=== PATIENT | female | born 1960 | race Caucasian/White ===

== ENCOUNTER 2016-07-13 10:36 | Emergency (ER) | payer MEDICAID ==
[~2016-07-13] VITALS: Ht 170.1 cm; Wt 68.0 kg
--- NOTE | ~2016-07-13 | EKG ---
[place], [place] ELECTROCARDIOGRAM REPORT NAME: STEPAN BANG UNIT #: [id number] ROOM: DOCTOR: KHUSHI JOSEPH MD BIRTHDATE: [birth year] DOS: 07/13/2016 TIME: 11:29. Sinus tachycardia with rate of 110, left ventricular hypertrophy, cannot rule out previous inferior wall myocardial infarction, abnormal EKG. KHUSHI JOSEPH MD CM:EKGRPT:ELECTROCARDIOGRAM REPORT 14 37 KHUSHI JOSEPH MD
[~2016-07-13 10:36] MED LIST: 'CLONIDINE0.1 MG PO; CLONAZEPAM0.25 MG PO; CYMBALTA60 MG PO; DITROPAN XL10 MG PO; DULCOLAX10 M1 RC; FLONASE ALLERG9.9 ML NAS; GLUCOPHAGE500 MG PO; LEVEMIR10 ML SC; LOPRESSOR25 MG PO; MIRALAX17 GM PO; MOM30 M1 PO; PREMARIN V0.625 MG/G V; REMERON15 M2 PO; TEGRETOL200 MG PO; TYLENOL EXTRA500 M2 PO
[2016-07-13 11:03] LABS: BASO % 0.4 % (0.0-1.0); EOS # 0.2 10*3/uL (0.0-0.4); EOS % 1.9 % (1.0-4.0); HEMATOCRIT 35.5 % (37.0-47.0); HEMOGLOBIN 11.1 g/dl (12.0-16.0); IG # 0.1 10*3/uL (0.0-0.1); LYMPH # 1.5 10*3/uL (1.3-4.4); LYMPH % 17.1 % (27.0-41.0); MEAN CELL VOLUME 96.5 fl (81.0-99.0); MEAN CORPUSCULAR HGB 30.2 pg (27.0-31.0); MEAN CORPUSCULAR HGB CONC 31.3 g/dl (33.0-37.0); MEAN PLATELET VOLUME 11.4 fl (9.6-12.3); MONO # 0.6 10*3/uL (0.1-1.0); MONO % 7.2 % (3.0-9.0); NEUT # 6.2 10*3/uL (2.3-7.9); NEUT % 72.7 % (47.0-73.0); PLATELET COUNT AUTOMATED 260 10*3/uL (130-400); RED BLOOD COUNT 3.68 10*6/uL (4.10-5.10); RED CELL DISTRI WIDTH 12.9 % (0-14.5); WHITE BLOOD COUNT 8.5 10*3/uL (4.8-10.8)
[2016-07-13] MEDS ORDERED: JANUVIA25 MG PO (11:05)
[2016-07-13] MEDS ORDERED: METFORMIN500 MG PO (11:06)
[2016-07-13 11:12] LABS: INTERNATIONAL NORM RATIO 0.9 (2.0-3.5)
[2016-07-13 11:20] LABS: ALBUMIN 2.4 gm/dl (3.1-4.5); ALKALINE PHOSPHATASE 163 U/L (45-117); BILIRUBIN, TOTAL 0.2 mg/dl (0.2-1.0); BUN 13 mg/dl (7-24); CARBON DIOXIDE 27 mmol/L (21-32); CHLORIDE 107 mmol/L (98-107); CKMB 2.5 ng/ml (0.5-3.6); CPK 175 U/L (26-192); EST GLOM FILT AFRICAN AMERICAN > 60 ml/min; GLUCOSE 267 mg/dL (65-99); MAGNESIUM 2.1 mg/dL (1.5-2.1); POTASSIUM 4.1 mmol/L (3.5-5.1); SGOT/AST 31 IU/L (3-35); SGPT/ALT 33 U/L (12-78); SODIUM 142 mmol/L (136-145); TOTAL PROTEIN 6.9 gm/dL (6.4-8.2)
[2016-07-13 11:24] LABS: TROPONIN I < 0.015 ng/ml (<0.045)
[2016-07-13 12:36] LABS: BILIRUBIN NEGATIVE (NEGATIVE); BLOOD 3+ (NEGATIVE); CLARITY SL CLOUDY (CLEAR); COLOR YELLOW (YELLOW); GLUCOSE 3+ (NEGATIVE); KETONE NEGATIVE (NEGATIVE); LEUKO ESTERASE NEGATIVE (NEGATIVE); NITRITE NEGATIVE (NEGATIVE); PROTEIN 1+ (NEGATIVE); SPECIFIC GRAVITY >= 1.030 (1.005-1.030); UROBILINOGEN 0.2 E.U./dl (0.2-1.0)
[2016-07-13 12:54] LABS: MUCOUS 1+; RBC 21-30 rbc/hpf (0-2); URINE REFLEX COMMENT YES (NO)
[2016-07-13 13:00] LABS: LA>2 REFLEX 2 HR DRAW NOW
[2016-07-13 13:33] LABS: LA>2 RFLX FOLLOW UP AT 2 HRS 3.9 mmol/L (0.4-2.0)
[2016-07-13 15:02] VITALS: BP 114/63
[2016-07-13 15:23] LABS: LA>2 REFLEX 4 HR DRAW NOW
== END 2016-07-13 16:00 | disposition short-term general hospital (02) ==
LOC: ED 10:36
PROVIDERS: Emergency Medicine
DX: G93.41 Metabolic encephalopathy (principal); K85.90 Acute pancreatitis without necrosis or infection, unspecified; I10 Essential (primary) hypertension; G40.909 Epilepsy, unspecified, not intractable, without status epilepticus; Z79.899 Other long term (current) drug therapy; Z86.73 Personal history of transient ischemic attack (TIA), and cerebral infarction without residual deficits

== ENCOUNTER 2016-10-02 07:44 | Emergency (ER) | payer MEDICAID ==
[~2016-10-02] VITALS: Wt 56.2 kg
[~2016-10-02 07:44] MED LIST changes: +JANUVIA25 MG PO; +METFORMIN500 MG PO
[2016-10-02] MEDS ORDERED: ATORVASTATIN CA10 M1 PO ×2 (08:03→08:05)
[2016-10-02] MEDS ORDERED: CARBATROL100 MG PO (08:06)
[2016-10-02] MEDS ORDERED: CLONAZEPAM0.25 MG PO (08:07)
[2016-10-02] MEDS ORDERED: CYMBALTA30 MG PO (08:09)
[2016-10-02] MEDS ORDERED: PREMARIN V0.625 MG/G V (08:10)
[2016-10-02] MEDS ORDERED: FLUTICASON0.05 MG/AC NAS (08:10)
[2016-10-02] MEDS ORDERED: JANUVIA50 MG PO (08:11)
[2016-10-02] MEDS ORDERED: LEVEMIR10 ML SC (08:11)
[2016-10-02] MEDS ORDERED: LOSARTAN POTASS50 M1 PO (08:11)
[2016-10-02] MEDS ORDERED: Lopressor25 MG PO (08:12)
[2016-10-02] MEDS ORDERED: METFORMIN500 MG PO (08:12)
[2016-10-02] MEDS ORDERED: MIRALAX POWDER255 G1 PO (08:13)
[2016-10-02] MEDS ORDERED: MILK OF MA400 MG/51 PO (08:13)
[2016-10-02] MEDS ORDERED: REMERON15 M2 PO (08:14)
[2016-10-02] MEDS ORDERED: NOVOLOG10 ML SC (08:17)
[2016-10-02] MEDS ORDERED: OXYBUTYNIN CHLO10 MG PO (08:17)
[2016-10-02] MEDS ORDERED: TYLENOL325 M1 PO (08:18)
[2016-10-02] MEDS ORDERED: VITAMIN D400 I1 PO (08:18)
[2016-10-02 08:21] LABS: BASO % 0.4 % (0.0-1.0); EOS # 0.1 10*3/uL (0.0-0.4); EOS % 1.6 % (1.0-4.0); HEMATOCRIT 38.8 % (37.0-47.0); HEMOGLOBIN 12.7 g/dl (12.0-16.0); LYMPH # 2.2 10*3/uL (1.3-4.4); LYMPH % 44.1 % (27.0-41.0); MEAN CELL VOLUME 89.4 fl (81.0-99.0); MEAN CORPUSCULAR HGB 29.3 pg (27.0-31.0); MEAN CORPUSCULAR HGB CONC 32.7 g/dl (33.0-37.0); MEAN PLATELET VOLUME 10.3 fl (9.6-12.3); MONO # 0.4 10*3/uL (0.1-1.0); MONO % 8.4 % (3.0-9.0); NEUT # 2.3 10*3/uL (2.3-7.9); NEUT % 45.1 % (47.0-73.0); PLATELET COUNT AUTOMATED 186 10*3/uL (130-400); RED BLOOD COUNT 4.34 10*6/uL (4.10-5.10); RED CELL DISTRI WIDTH 12.7 % (0-14.5)
[2016-10-02 08:32] LABS: PROTHROMBIN TIME 10.6 SECONDS (9.0-12.4)
[2016-10-02 08:44] LABS: ALBUMIN 3.3 gm/dl (3.1-4.5); ALKALINE PHOSPHATASE 153 U/L (45-117); BILIRUBIN, TOTAL 0.2 mg/dl (0.2-1.0); BUN 12 mg/dl (7-24); C-REACTIVE PROTEIN 1.45 MG/DL (0-0.3); CARBON DIOXIDE 21 mmol/L (21-32); CHLORIDE 111 mmol/L (98-107); CKMB 1.4 ng/ml (0.5-3.6); CPK 66 U/L (26-192); EST GLOM FILT AFRICAN AMERICAN > 60 ml/min; GLUCOSE 111 mg/dL (65-99); MAGNESIUM 2.1 mg/dL (1.5-2.1); SGOT/AST 54 IU/L (3-35); SGPT/ALT 56 U/L (12-78); SODIUM 145 mmol/L (136-145); TOTAL PROTEIN 7.4 gm/dL (6.4-8.2)
[2016-10-02 08:47] LABS: TROPONIN I < 0.015 ng/ml (<0.045)
[2016-10-02 08:50] LABS: BILIRUBIN NEGATIVE (NEGATIVE); BLOOD NEGATIVE (NEGATIVE); CLARITY SL CLOUDY (CLEAR); COLOR YELLOW (YELLOW); GLUCOSE NEGATIVE (NEGATIVE); KETONE NEGATIVE (NEGATIVE); LEUKO ESTERASE 1+ (NEGATIVE); NITRITE NEGATIVE (NEGATIVE); PH 5.5 (5.0-9.0); PROTEIN NEGATIVE (NEGATIVE); UROBILINOGEN 0.2 E.U./dl (0.2-1.0)
[2016-10-02 09:04] LABS: BACTERIA 4+; URINE REFLEX COMMENT YES (NO); WBC 21-30 wbc/hpf (0-5)
[2016-10-02] MEDS ORDERED: CIPRO500 MG PO (09:19)
[2016-10-02 09:51] VITALS: BP 125/84
== END 2016-10-02 12:13 ==
LOC: ED 07:44
PROVIDERS: Emergency Medicine
DX: N39.0 Urinary tract infection, site not specified (principal); I10 Essential (primary) hypertension; G40.909 Epilepsy, unspecified, not intractable, without status epilepticus; Z86.73 Personal history of transient ischemic attack (TIA), and cerebral infarction without residual deficits; Z79.899 Other long term (current) drug therapy; Z86.69 Personal history of other diseases of the nervous system and sense organs

== ENCOUNTER 2017-01-22 13:23 | Emergency (ER) | payer MEDICAID ==
[~2017-01-22] VITALS: Wt 59.9 kg
[2017-01-22 13:23] VITALS: BP 124/63
[~2017-01-22 13:23] MED LIST changes: +ATORVASTATIN CA10 M1 PO; +CARBATROL100 MG PO; +CIPRO500 MG PO; +CYMBALTA30 MG PO; +FLUTICASON0.05 MG/AC NAS; +JANUVIA50 MG PO; +LOSARTAN POTASS50 M1 PO; +Lopressor25 MG PO; +MILK OF MA400 MG/51 PO; +MIRALAX POWDER255 G1 PO; +NOVOLOG10 ML SC; +OXYBUTYNIN CHLO10 MG PO; +TYLENOL325 M1 PO; +VITAMIN D400 I1 PO
[2017-01-22 13:59] LABS: BASO % 0.3 % (0.0-1.0); EOS # 0.1 10*3/uL (0.0-0.4); HEMATOCRIT 40.6 % (37.0-47.0); HEMOGLOBIN 12.8 g/dl (12.0-16.0); LYMPH # 1.6 10*3/uL (1.3-4.4); LYMPH % 22.7 % (27.0-41.0); MEAN CELL VOLUME 91.9 fl (81.0-99.0); MEAN CORPUSCULAR HGB CONC 31.5 g/dl (33.0-37.0); MEAN PLATELET VOLUME 10.3 fl (9.6-12.3); MONO # 0.4 10*3/uL (0.1-1.0); MONO % 5.5 % (3.0-9.0); NEUT # 4.8 10*3/uL (2.3-7.9); NEUT % 70.1 % (47.0-73.0); PLATELET COUNT AUTOMATED 182 10*3/uL (130-400); RED BLOOD COUNT 4.42 10*6/uL (4.10-5.10); RED CELL DISTRI WIDTH 12.6 % (0-14.5); WHITE BLOOD COUNT 6.9 10*3/uL (4.8-10.8)
[2017-01-22 14:12] LABS: ALBUMIN 3.4 gm/dl (3.1-4.5); ALKALINE PHOSPHATASE 169 U/L (45-117); BUN 15 mg/dl (7-24); CHLORIDE 102 mmol/L (98-107); CREATININE 0.71 mg/dL (0.55-1.02); POTASSIUM 4.2 mmol/L (3.5-5.1); SGOT/AST 49 IU/L (3-35); SGPT/ALT 64 U/L (12-78); SODIUM 138 mmol/L (136-145); TOTAL PROTEIN 7.8 gm/dL (6.4-8.2)
[2017-01-22 14:16] LABS: BILIRUBIN NEGATIVE (NEGATIVE); BLOOD NEGATIVE (NEGATIVE); CLARITY CLOUDY (CLEAR); COLOR YELLOW (YELLOW); GLUCOSE 2+ (NEGATIVE); KETONE TRACE (NEGATIVE); LEUKO ESTERASE TRACE (NEGATIVE); NITRITE NEGATIVE (NEGATIVE); PH 5.5 (5.0-9.0); SPECIFIC GRAVITY 1.015 (1.005-1.030); UROBILINOGEN 0.2 E.U./dl (0.2-1.0)
[2017-01-22 14:22] LABS: RBC 0-2 rbc/hpf (0-2)
[2017-01-22 14:23] LABS: BACTERIA 3+
== END 2017-01-22 15:24 ==
LOC: ED 13:23
PROVIDERS: Emergency Medicine
DX: R47.89 Other speech disturbances (principal); Z98.890 Other specified postprocedural states; Z79.899 Other long term (current) drug therapy

== ENCOUNTER → 2019-02-27 | Day surgery (SDC) | payer MEDICAID ==
--- NOTE | ~2019-02-27 | O ---
[place], [place] OPERATIVE NOTE NAME: STEPAN BANG UNIT #: [id number] ROOM: DOCTOR: NATHEN GRACE MD BIRTHDATE: [birth year] DOS: 02/27/2019 INDICATIONS: A 58-year-old patient with chief complaint of colonic screening, undergoing investigation. ALLERGIES: No known medication. FAMILY HISTORY: Noncontributory. PAST SURGICAL HISTORY: Cholecystectomy. PAST MEDICAL HISTORY: CVA 20 years ago. SOCIAL HISTORY: Nonsmoker, nonalcohol consumer. PROCEDURE: Today's procedure part of investigation is colonoscopy plus polypectomy x 2 plus tattoo marking of the cecum. PREMEDICATION: Propofol. SCOPE: Olympus forward-viewing colonoscope 10L video. REPORT: After putting the patient in the left lateral position and application of lubricant to the scope, the scope was introduced. Thereafter, under direct visualization, advanced through the length of colon without difficulty. Base of the cecum explored, appendiceal orifice identified, ileocecal valve was entered. There is a large infiltrated polypoid lesion at the base of the cecum. Partial polypectomy snare was performed for sampling to rule out carcinoma. Tattoo marking of the cecum was done. Another polypoid lesion, hepatic flexure, small with a snare was polypectomized. Samples removed. The patient extubated, tolerated the procedure well. IMPRESSION: Cecal infiltrating polyp large, status post segmental polypectomy for pathology as well as tattoo marking and also status post polypectomy at the splenic flexure, small polyp. PLAN AND DISCUSSION: High fiber diet. ACTIVITY: Ad malik. FOLLOWUP: As outpatient. Should it be positive samples of the cecum, then she requires cecectomy. [place], [place] OPERATIVE NOTE NAME: STEPAN BANG UNIT #: [id number] ROOM: DOCTOR: NATHEN GRACE MD BIRTHDATE: [birth year] NATHEN GRACE MD CM:OPRECORD:OPERATIVE NOTE 1220 [id number] NATHEN GRACE MD 02/27/19 1359 interface
[2019-02-27 10:00] VITALS: BP 171/77
[2019-02-27 12:14] VITALS: BP 86/47
[2019-02-27 12:29] VITALS: BP 105/60
[2019-02-27 12:44] VITALS: BP 147/79
[2019-02-27 14:10] VITALS: BP 167/75
== END | disposition home or self-care (01) ==
LOC: SDC 02-24 09:30
DX: D12.3 Benign neoplasm of transverse colon (principal); D12.0 Benign neoplasm of cecum; K59.00 Constipation, unspecified; I25.10 Atherosclerotic heart disease of native coronary artery without angina pectoris; I10 Essential (primary) hypertension; E11.9 Type 2 diabetes mellitus without complications; Z90.49 Acquired absence of other specified parts of digestive tract; Z86.73 Personal history of transient ischemic attack (TIA), and cerebral infarction without residual deficits

== ENCOUNTER 2019-04-22 07:40 | Inpatient (IN) | payer MEDICAID ==
[~2019-04-22] VITALS: Ht 152.4 cm; Wt 56.9 kg
[2019-04-22 07:50] VITALS: BP 167/92
[2019-04-22 08:00] VITALS: BP 167/92
--- NOTE | 2019-04-22 08:28 | NUR ---
DR. BHARDWAJ IN TO SEE PATIENT AND DISCUSS PLAN OF CARE. ORDERS RECEIVED. PATIENT MADE NPO AT THIS TIME.
--- NOTE | 2019-04-22 08:48 | NUR ---
Time: 749 A 59 year old FEMALE admitted to 5E under services of FRED SLAUGHTER DO. Pt. arrived via wheel chair from [place]. Chief complaint: CECAL POLYP. PATIENT ORIENTED TO THE FLOOR 5E CALL LIGHT SYSTEM EXPLAINED AND DEMONSTRATED. ASSESSMENT PERFORMED, IV INITIATED. DR. POE NOTIFIED OF ADMISSION'S ARRIVAL MARIA GUADALUPE LUCAS
--- NOTE | 2019-04-22 09:37 | NUR ---
SPOKE WITH TOBY BENITO ABOUT PATIENT AND PLAN OF CARE. ORDERS RECEIVED TO BLADDER SCAN PATIENT. WILL PLACE VALENTIN IF RETAINING.
[2019-04-22 11:34] LABS: BASO % 0.3 % (0.0-1.0); EOS # 0.1 10*3/uL (0.0-0.4); EOS % 1.5 % (1.0-4.0); HEMATOCRIT 40.9 % (37.0-47.0); HEMOGLOBIN 13.3 g/dl (12.0-16.0); LYMPH % 33.8 % (27.0-41.0); MEAN CELL VOLUME 91.5 fl (81.0-99.0); MEAN CORPUSCULAR HGB 29.8 pg (27.0-31.0); MEAN CORPUSCULAR HGB CONC 32.5 g/dl (33.0-37.0); MEAN PLATELET VOLUME 10.2 fl (9.6-12.3); MONO # 0.4 10*3/uL (0.1-1.0); MONO % 7.4 % (3.0-9.0); NEUT # 3.3 10*3/uL (2.3-7.9); NEUT % 56.5 % (47.0-73.0); PLATELET COUNT AUTOMATED 214 10*3/uL (130-400); RED BLOOD COUNT 4.47 10*6/uL (4.10-5.10); RED CELL DISTRI WIDTH 13.9 % (0-14.5); WHITE BLOOD COUNT 5.8 10*3/uL (4.8-10.8)
[2019-04-22 11:45] LABS: ACT PARTIAL THROMBO TIME 25.4 SECONDS (20.0-32.1); INTERNATIONAL NORM RATIO 0.9 (2.0-3.5)
[2019-04-22 11:49] LABS: ALBUMIN 3.7 gm/dl (3.1-4.5); ALKALINE PHOSPHATASE 126 U/L (45-117); BUN 15 mg/dl (7-24); CHLORIDE 107 mmol/L (98-107); CREATININE 0.64 mg/dL (0.55-1.02); SGOT/AST 31 IU/L (3-35); SGPT/ALT 52 U/L (12-78); SODIUM 139 mmol/L (136-145); TOTAL PROTEIN 7.9 gm/dL (6.4-8.2)
[2019-04-22 12:00] VITALS: BP 166/76
--- NOTE | 2019-04-22 13:59 | NUR ---
UPDATED DR. BHARDWAJ WITH THE CT SCAN RESULTS. NO NEW ORDERS AT THIS TIME. PATIENT WILL BE MADE NPO AT MIDNIGHT.
[2019-04-22 14:44] LABS: BILIRUBIN NEGATIVE (NEGATIVE); BLOOD 1+ (NEGATIVE); CLARITY SL CLOUDY (CLEAR); COLOR STRAW (YELLOW); GLUCOSE NEGATIVE (NEGATIVE); KETONE NEGATIVE (NEGATIVE); LEUKO ESTERASE TRACE (NEGATIVE); NITRITE POSITIVE (NEGATIVE); SPECIFIC GRAVITY <= 1.005 (1.005-1.030); UROBILINOGEN 0.2 E.U./dl (0.2-1.0)
[2019-04-22 15:23] LABS: BACTERIA 3+
[2019-04-22 16:00] VITALS: BP 158/70
--- NOTE | 2019-04-22 16:17 | NUR ---
I SPOKE WITH DR BHARDWAJ AND MADE HIM AWARE OF PT'S +UA RESULTS PER TOBY BENITO REQUEST. STATED SHE IS OK FOR SURGERY TOMMORROW STILL.
[2019-04-22 20:00] VITALS: BP 173/77
[2019-04-23] VITALS (11 sets, daily range): BP systolic 139–190; BP diastolic 62–89
--- NOTE | 2019-04-23 00:44 | NUR ---
Patient resting quietly with no c/o discomfort. Respirations easy and regular. Vital signs stable. No overt distress. ADA FOSTER
--- NOTE | 2019-04-23 05:00 | NUR ---
SPOKE WITH DR BHARDWAJ. HE GAVE ORDERS TO GIVE THE PATIENT A FLEET ENEMA AND THEN TAP WATER ENEMAS UNTIL THE PATIENT HAD A BOWEL MOVEMENT BEFORE HER SCHEDULED SURGERY TODAY.
--- NOTE | 2019-04-23 05:45 | NUR ---
FLEET ENEMA ADMINISTERED. PATIENT TOLERATING WELL.
--- NOTE | 2019-04-23 06:15 | NUR ---
PATIENT HAD A BOWEL MOVEMENT. STOOL WAS FORMED. PATIENT STATED SHE WANTED TO TAKE A BREAK BEFORE RECIEVING A TAP WATER ENEMA IF NEEDED.
--- NOTE | 2019-04-23 08:19 | NUR ---
PHYSICAL THERAPY Screen received as well as PT orders will follow thank you Geri Mckeon PT
--- NOTE | 2019-04-23 08:20 | NUR ---
BETA-COLTEN METOPROLOL ADMINISTERED PER POLICY, PATIENT TO OR BY BED AT THIS TIME FOR PROCEDURE.
--- NOTE | 2019-04-23 08:42 | NUR ---
Nursing screen and Occupational Therapy referral received. Thank you. Valentina Amaro OTR/L
--- NOTE | 2019-04-23 10:44 | NUR ---
REPORT CALLED TO RECEIVING RN IN ICCU; PATIENT WILL BE TAKEN THERE WHEN SURGERY COMPLETED, PER OR STAFF.
--- NOTE | 2019-04-23 13:50 | NUR ---
RECEIVED INTO ICCU-6 VIA BED FROM OR. DROWSY, DOES OPEN EYES WHEN NAME IS CALLED. DAUGHTER HERE IN ROOM. HANDS CONTRACTURED. AFEBRILE. BP 155/71. PULSE OX 96% ON ROOM AIR. LUNGS CLEAR. MIDLINE ABDOMINAL INCISION DRESSING DRY AND INTACT.
--- NOTE | 2019-04-23 16:10 | NUR ---
PT RESTING IN BED AWAKE, ALERT, VERBAL AND ANSWERS QUESTIONS. RESP NONLABORED. PT C/O PAIN. MEDICATED WITH DILAUSIS PER PRN ORDER FOR PAIN. IV PATENT AND IVF'S INFUSING ORDERED WITHOUT DIFFICULTY. NO S/S OF HYPO/HYPERGLYCEMIA NOTED. VALENTIN PATENT FOR CLEAR STRAW URINE. MIDLINE INSICION DRESSING DRY AND INTACT.
--- NOTE | 2019-04-23 17:00 | NUR ---
DILAUDID EFFECTIVE FOR PAIN.
[2019-04-23 18:37] LABS: BASO % 0.1 % (0.0-1.0); EOS # 0.2 10*3/uL (0.0-0.4); HEMATOCRIT 33.7 % (37.0-47.0); HEMOGLOBIN 10.6 g/dl (12.0-16.0); LYMPH # 0.5 10*3/uL (1.3-4.4); LYMPH % 5.9 % (27.0-41.0); MEAN CELL VOLUME 92.1 fl (81.0-99.0); MEAN CORPUSCULAR HGB CONC 31.5 g/dl (33.0-37.0); MEAN PLATELET VOLUME 10.3 fl (9.6-12.3); MONO # 0.6 10*3/uL (0.1-1.0); MONO % 7.3 % (3.0-9.0); NEUT # 6.6 10*3/uL (2.3-7.9); NEUT % 84.4 % (47.0-73.0); PLATELET COUNT AUTOMATED 190 10*3/uL (130-400); RED BLOOD COUNT 3.66 10*6/uL (4.10-5.10); RED CELL DISTRI WIDTH 14.5 % (0-14.5); WHITE BLOOD COUNT 7.9 10*3/uL (4.8-10.8)
[2019-04-23 18:50] LABS: ALBUMIN 2.9 gm/dl (3.1-4.5); ALKALINE PHOSPHATASE 105 U/L (45-117); BUN 9 mg/dl (7-24); CHLORIDE 117 mmol/L (98-107); CREATININE 0.66 mg/dL (0.55-1.02); POTASSIUM 3.3 mmol/L (3.5-5.1); SGOT/AST 83 IU/L (3-35); SGPT/ALT 71 U/L (12-78); SODIUM 146 mmol/L (136-145); TOTAL PROTEIN 6.2 gm/dL (6.4-8.2)
--- NOTE | 2019-04-23 20:50 | NUR ---
MEDICATED WITH DILAUDID FOR S/S OF PAIN.
--- NOTE | 2019-04-23 22:00 | NUR ---
DILAUDID EFFECTIVE FOR PAIN.
[2019-04-24] VITALS: BP 178/88
--- NOTE | 2019-04-24 01:00 | NUR ---
MEDICATED WITH DILAUDID PER PRN ORDER FOR C/O PAIN.
--- NOTE | 2019-04-24 02:00 | NUR ---
DILAUDID EFFECTIVE FOR PAIN.
[2019-04-24 04:00] VITALS: BP 157/98
--- NOTE | 2019-04-24 06:15 | NUR ---
MEDICATED WITH DILAUDID FOR S/S OF PAIN.
[2019-04-24 06:29] LABS: BASO % 0.1 % (0.0-1.0); EOS # 0.2 10*3/uL (0.0-0.4); EOS % 2.6 % (1.0-4.0); HEMATOCRIT 31.6 % (37.0-47.0); HEMOGLOBIN 9.9 g/dl (12.0-16.0); LYMPH # 1.1 10*3/uL (1.3-4.4); LYMPH % 11.4 % (27.0-41.0); MEAN CELL VOLUME 93.8 fl (81.0-99.0); MEAN CORPUSCULAR HGB 29.4 pg (27.0-31.0); MEAN CORPUSCULAR HGB CONC 31.3 g/dl (33.0-37.0); MEAN PLATELET VOLUME 10.6 fl (9.6-12.3); MONO # 0.7 10*3/uL (0.1-1.0); MONO % 7.9 % (3.0-9.0); NEUT # 7.3 10*3/uL (2.3-7.9); NEUT % 77.7 % (47.0-73.0); PLATELET COUNT AUTOMATED 179 10*3/uL (130-400); RED BLOOD COUNT 3.37 10*6/uL (4.10-5.10); RED CELL DISTRI WIDTH 14.7 % (0-14.5); WHITE BLOOD COUNT 9.4 10*3/uL (4.8-10.8)
[2019-04-24 06:41] LABS: ALBUMIN 2.8 gm/dl (3.1-4.5); ALKALINE PHOSPHATASE 99 U/L (45-117); BUN 10 mg/dl (7-24); CHLORIDE 115 mmol/L (98-107); CREATININE 0.71 mg/dL (0.55-1.02); POTASSIUM 3.3 mmol/L (3.5-5.1); SGOT/AST 60 IU/L (3-35); SGPT/ALT 69 U/L (12-78); SODIUM 144 mmol/L (136-145); TOTAL PROTEIN 6.4 gm/dL (6.4-8.2)
[2019-04-24 08:00] VITALS: BP 153/82
--- NOTE | 2019-04-24 08:29 | NUR ---
Patient transferred to ICCU 04/23/19 after right colectomy. Patient resides at [facility] and uses a custom w/c. Per nursing notes she is able to perform a stand pivot transfer to w/c. She is assisted in her ADls at LTC If OT is indicated she will need a new referral. Valentina Amaro OTR/L
--- NOTE | 2019-04-24 08:35 | NUR ---
PHYSICAL THERAPY Pt transfered to ICU will need new orders for PT when medically stable Geri Mckeon PT
--- NOTE | 2019-04-24 09:01 | NUR ---
PATIENT YELLING OUT. C/O BACK PAIN. MEDICATED WITH DILAUDID PER ONE TIME EXTRA ORDER.
--- NOTE | 2019-04-24 09:23 | NUR ---
PATIENT CONTINUES TO YELL OUT. MEDICATED WITH ATIVAN 1MG IV PER PRN ORDER FOR AGITATION. WILL CONTINUE TO MONITOR.
--- NOTE | 2019-04-24 11:00 | NUR ---
ONE TIME LABETOLOL ORDER HELD DUE TO BLOOD [id number]. PATIENT IS RESTING WITH EYES CLOSED. IS NO LONGER YELLING OUT. INFORMED OF HOLDING ORDER.
[2019-04-24 12:00] VITALS: BP 146/69
[2019-04-24 16:00] VITALS: BP 139/70
[2019-04-24 20:00] VITALS: BP 125/74
--- NOTE | 2019-04-24 22:00 | NUR ---
PT MOANING OUT AND WHEN ASKED IF IN PAIN PT STATES YES. MEDICATED WITH DILAUDID PER PRN ORDER FOR PAIN.
--- NOTE | 2019-04-24 23:00 | NUR ---
DILAUDID EFFECTIVE FOR PAIN.
[2019-04-25] VITALS: BP 120/54; BP 140/63
--- NOTE | 2019-04-25 00:15 | NUR ---
PT HR 130'S AND BP 164/71. DR PAINTING HERE AND ORDER FOR 0200 LOPRESSOR TO BE GIVEN NOW.
--- NOTE | 2019-04-25 01:05 | NUR ---
MEDICATED WITH ATIVAN PER PRN ORDER.
--- NOTE | 2019-04-25 02:55 | NUR ---
MEDICATED WITH DILAUDID PER PRN ORDER FOR S/S OF PAIN. PT CRYING OUT.
[2019-04-25 03:58] VITALS: BP 120/65
--- NOTE | 2019-04-25 04:00 | NUR ---
DILAUDID EFFECTIVE FOR PAIN.
--- NOTE | 2019-04-25 06:40 | NUR ---
MEDICATED WITH ATIVAN PER PRN ORDER FOR AGITATION.
--- NOTE | 2019-04-25 06:44 | NUR ---
PHYSICAL THERAPY PT EVAL COMPLETED : FULL EVAL TO FOLLOW. RECOMMEND PT WHILE HERE INITIALLY TO ADDRESS TRANSFERS AND ASSESS FOR PT NEED. PT EVAL IS MODERATE COMPLEXITY; [id number]. D/C REC: RETURN TO LTC AT [facility]. WILL RETURN TOMORROW AND COMPLETE TRANSFER OUT OF BED TO CHAIR WITH NURSING STAFF. THANK YOU FOR REFERRAL FRANDY RUANO PT
--- NOTE | 2019-04-25 07:47 | NUR ---
PATIENT YELLING OUT CONTINUOUSLY. JUST SAYS THE WORD PAIN. MEDICATED WITH DILAUDID PER PRN ORDER. WILL CONTINUE TO MONITOR.
[2019-04-25 08:00] VITALS: BP 143/62
--- NOTE | 2019-04-25 08:30 | NUR ---
PATIENT RESTING QUIETLY. NO FURTHER YELLING OUT. DILAUDID EFFECTIVE.
[2019-04-25 08:32] LABS: BASO % 0.2 % (0.0-1.0); EOS # 0.1 10*3/uL (0.0-0.4); EOS % 0.5 % (1.0-4.0); HEMATOCRIT 29.2 % (37.0-47.0); HEMOGLOBIN 8.9 g/dl (12.0-16.0); LYMPH # 1.6 10*3/uL (1.3-4.4); LYMPH % 16.8 % (27.0-41.0); MEAN CELL VOLUME 95.1 fl (81.0-99.0); MEAN CORPUSCULAR HGB CONC 30.5 g/dl (33.0-37.0); MEAN PLATELET VOLUME 10.5 fl (9.6-12.3); MONO # 0.5 10*3/uL (0.1-1.0); MONO % 5.8 % (3.0-9.0); PLATELET COUNT AUTOMATED 160 10*3/uL (130-400); RED BLOOD COUNT 3.07 10*6/uL (4.10-5.10); RED CELL DISTRI WIDTH 14.9 % (0-14.5); WHITE BLOOD COUNT 9.2 10*3/uL (4.8-10.8)
[2019-04-25 08:42] LABS: BUN 8 mg/dl (7-24); CHLORIDE 118 mmol/L (98-107); CREATININE 0.55 mg/dL (0.55-1.02); POTASSIUM 3.5 mmol/L (3.5-5.1); SODIUM 146 mmol/L (136-145)
[2019-04-25 12:00] VITALS: BP 141/75
--- NOTE | 2019-04-25 12:00 | NUR ---
FAMILY AT BEDSIDE. STATING THAT WHEN PATIENT IS SHAKING HER HEAD AND FEET THAT SHE IS HAVING PAIN. REQUESTING PAIN MEDICATION GIVEN. MEDICATED WITH DILAUDID PER PRN ORDER. WILL CONTINUE TO MONITOR.
--- NOTE | 2019-04-25 12:30 | NUR ---
PATIENT RESTING QUIETLY AT THIS TIME. NO FURTHER SHAKING OF FEET/HANDS. DILAUDID EFFECTIVE.
--- NOTE | 2019-04-25 13:47 | NUR ---
ATIVAN PER FAMILYS REQUEST
[2019-04-25 16:00] VITALS: BP 155/80
[2019-04-25 20:00] VITALS: BP 172/79
[2019-04-26] VITALS (7 sets, daily range): BP systolic 101–184; BP diastolic 48–78
[2019-04-26 05:27] LABS: ALBUMIN 2.3 gm/dl (3.1-4.5); ALKALINE PHOSPHATASE 141 U/L (45-117); BUN 9 mg/dl (7-24); CHLORIDE 118 mmol/L (98-107); CREATININE 0.46 mg/dL (0.55-1.02); POTASSIUM 3.4 mmol/L (3.5-5.1); SGOT/AST 59 IU/L (3-35); SGPT/ALT 55 U/L (12-78); SODIUM 145 mmol/L (136-145); TOTAL PROTEIN 6.1 gm/dL (6.4-8.2)
[2019-04-26 06:13] LABS: BASO % 0.1 % (0.0-1.0); EOS # 0.1 10*3/uL (0.0-0.4); EOS % 0.9 % (1.0-4.0); HEMATOCRIT 29.5 % (37.0-47.0); HEMOGLOBIN 8.9 g/dl (12.0-16.0); LYMPH # 1.8 10*3/uL (1.3-4.4); LYMPH % 20.3 % (27.0-41.0); MEAN CORPUSCULAR HGB 29.3 pg (27.0-31.0); MEAN CORPUSCULAR HGB CONC 30.2 g/dl (33.0-37.0); MEAN PLATELET VOLUME 10.7 fl (9.6-12.3); MONO # 0.5 10*3/uL (0.1-1.0); MONO % 5.2 % (3.0-9.0); NEUT # 6.4 10*3/uL (2.3-7.9); NEUT % 73.2 % (47.0-73.0); PLATELET COUNT AUTOMATED 185 10*3/uL (130-400); RED BLOOD COUNT 3.04 10*6/uL (4.10-5.10); RED CELL DISTRI WIDTH 14.6 % (0-14.5); WHITE BLOOD COUNT 8.7 10*3/uL (4.8-10.8)
--- NOTE | 2019-04-26 09:00 | NUR ---
PT HAD LARGE AMOUNT OF LIQUID STOOL.
--- NOTE | 2019-04-26 09:13 | NUR ---
PT MEDICATED WITH DILAUDID 1MG AND ATIVAN 1MG DUE TO BECOMING AGITATED AND HOLLERING OUT "IM IN PAIN".
--- NOTE | 2019-04-26 10:41 | NUR ---
DR BHARDWAJ IN TO SEE PT. HE SPOKE WITH DAUGHTER WHO IS AT BEDSIDE ALSO.
--- NOTE | 2019-04-26 10:45 | NUR ---
PT DILAUDID AND ATIVAN ARE EFFECTIVE. PT HAS BEEN RESTING QUIETLY SINCE BEING MEDICATED.
--- NOTE | 2019-04-26 11:30 | NUR ---
PHYSICAL THERAPY PATIENT SEEN TODAY WITH DAUGHTERS PRESENT TO COMPLETE STAND PIVOT TRANSFER FROM BED TO RECLINER PER SURGEONS REQUEST TO BE UP AND OUT OF BED. PATEINT REQUIRED MAX ASSIST TO TD + FOR SUPINE TO SIT AND THEN TD OF 2 FOR SPT FROM BED TO RECLINER. ONCE IN RECLINER PILLOWS WERE PLACED FOR OPTIMAL POSITIONING AND DISCUSSED WITH NURSING AND FAMILY THAT SHE WAS NOT SAFE TO BE UPRIGHT IN THE CHAIR WITHOUT THE LEGREST UP UNLESS SHE WAS CONSTANTLY ATTENDED DUE TO EXTENSOR TONE IN TRUNK CAUSING HER TO SLIDE DOWNWARD IN THE CHAIR. NURSING AND FAMILY UNDERSTOOD AND WILL FOLLOW THROUGH. FRANDY RUANO PT
--- NOTE | 2019-04-26 12:30 | NUR ---
PT ASSISTED OUT OF BED IN TO RECLINER CHAIR. PT WAS MAX ASSIST OF 2.
--- NOTE | 2019-04-26 13:46 | NUR ---
MAX ASSIST OF 2 NEEDED TO TRANSFER PT BACK INTO BED.
--- NOTE | 2019-04-26 14:10 | NUR ---
AFTER BEING ASSISTED BACK IN TO BED PT HOLLERING OUT IN PAIN. DILAUDID 1MG IV GIVEN WITH ATIVAN 1MG IV FOR ANXIETY.
[2019-04-27] VITALS: BP 144/73
[2019-04-27 04:00] VITALS: BP 151/68
--- NOTE | 2019-04-27 05:02 | NUR ---
PATIENT HAS STARTED HOLLARING OUT ABOUT EVERY 4-5 HOURS ANSD WHEN ASKED IF SHE HAS PAIN SHE SAYS YES THIS TIME PATIENT KEPT YELLING SO ATIVAN WAS GIVEN FOR ANXIETY. PATIENT NOW RESTING COMFORTABLY FOR THE NIGHT.
[2019-04-27 05:30] LABS: BUN 5 mg/dl (7-24); CHLORIDE 121 mmol/L (98-107); CREATININE 0.41 mg/dL (0.55-1.02); PHOSPHOROUS 1.2 mg/dL (2.5-4.9); POTASSIUM 3.2 mmol/L (3.5-5.1); SODIUM 147 mmol/L (136-145)
[2019-04-27 06:14] LABS: BASO % 0.2 % (0.0-1.0); EOS # 0.2 10*3/uL (0.0-0.4); EOS % 3.7 % (1.0-4.0); HEMOGLOBIN 8.1 g/dl (12.0-16.0); LYMPH # 1.2 10*3/uL (1.3-4.4); LYMPH % 19.6 % (27.0-41.0); MEAN CELL VOLUME 98.2 fl (81.0-99.0); MEAN CORPUSCULAR HGB 29.5 pg (27.0-31.0); MEAN PLATELET VOLUME 10.1 fl (9.6-12.3); MONO # 0.4 10*3/uL (0.1-1.0); NEUT % 68.3 % (47.0-73.0); PLATELET COUNT AUTOMATED 199 10*3/uL (130-400); RED BLOOD COUNT 2.75 10*6/uL (4.10-5.10); RED CELL DISTRI WIDTH 14.5 % (0-14.5); WHITE BLOOD COUNT 5.9 10*3/uL (4.8-10.8)
--- NOTE | 2019-04-27 07:55 | NUR ---
PHYSICAL THERAPY Patient seen this am 1:1 for therapy visit and was resting supine in bed upon therapist arrival. Patient identified by name / and presented with IV treatment, vital monitoring. Patient resting HR 102 bpm at rest and following supine to sit EOB transfer, MAX A x 2, demonstrating increased global Rigidity. Patient also very limited in trunk flexion making it more difficult to tolerate static EOB sit. Patient transfered sit to stand SECURITY STRATEGIST/MAX A, completing SPT to bedside chair, requiring repeated v/c's for upright posture and safe step sequence. Patient remained in bedside recliner chair with LE's elevated under ICCU staff Supervision. Patient also needed repositioned in chair due to Poor trunk control with pillow support for comfort. Will continue per POC as tolerated, total treatment time 14 minutes. Philip Perea, BLOWER OPERATOR
[2019-04-27 08:00] VITALS: BP 139/65
--- NOTE | 2019-04-27 08:39 | NUR ---
PATIENT YELLING OUT IN PAIN. MEDICATED WITH DILAUDID PER PRN ORDER. WILL CONTINUE TO MONITOR.
--- NOTE | 2019-04-27 10:37 | NUR ---
Patient up in recliner, lethargic and not appropriate for OT evaluation at this time. Valentina Amaro OTR/l
[2019-04-27 12:00] VITALS: BP 172/78
--- NOTE | 2019-04-27 12:46 | NUR ---
PATIENT YELLING OUT IN PAIN. MEDICATED WITH DILAUDID PER PRN ORDER. WILL CONTINUE TO MONITOR.
--- NOTE | 2019-04-27 13:45 | NUR ---
Occupational Therapy evaluation completed in ICCU with full eval to follow. Patient was unable/unwilling to open eyes or actively move BUE for evaluation and PROM BUE only assessed. Discussion w/ PT who has patient on programming, and recommend PT trial dima lift into custom w/c and then train staff if patient able to tolerate. No further OT indicated. Recommend PROM BUE with daily nursing care and return to LTC facility upon d/c. Thank you. Valentina Amaro OTr/l
--- NOTE | 2019-04-27 14:44 | NUR ---
PT YELLING OUT. HR 130s ON CM. SEEMS TO BE IN PAIN. DILAUDID GIVEN PER ORDERS. WILL MONITOR. CALL LIGHT WITHIN REACH. BED ALARM ON.
--- NOTE | 2019-04-27 15:15 | NUR ---
Resting comfortably following dilaudid. Pain med seems to be effective. call light within reach. Bed alarm on.
[2019-04-27 16:00] VITALS: BP 142/71
--- NOTE | 2019-04-27 16:31 | NUR ---
CALLED FOR HR 120-130s. SAID IT WAS OK. SHE HAS SCHEDULED LOPRESSOR IV. CONTINUE WITH CURRENT ORDERS.
--- NOTE | 2019-04-27 17:36 | NUR ---
HR 110S FOLLOWING IV LOPRESSOR. PT ASYMPTOMATIC. WILL MONITOR. RESTING IN BED. NO SXS OF DISTRESS NOTED. FAMILY AT BEDSIDE
--- NOTE | 2019-04-27 19:30 | NUR ---
IN TO SEE PT. ASSESSMENT COMPLETE. PT DOES NOT RESPOND TO ANY QUESTIONS. NO S/S OF DISTRESS NOTED AT THIS TIME. WILL CONTINUE TO MONITOR.
[2019-04-27 20:00] VITALS: BP 160/72
--- NOTE | 2019-04-27 20:15 | NUR ---
PTS HR 140 PER GIVE HER SCHEDULED IV METOPROLOL NOW AND CALL HIM BACK IN 10 MIN WITH HR.
--- NOTE | 2019-04-27 20:24 | NUR ---
DALE LOPRESSOR GIVEN PER WILL MONITOR
--- NOTE | 2019-04-27 20:41 | NUR ---
NOTIFIED PTS HR NOW DOWN TO 112. NO NEW ORDERS RECEIVED.
--- NOTE | 2019-04-27 20:59 | NUR ---
PT YELLING OUT IN PAIN. DILAUDID GIVEN ORDERED. WILL CHECK EFFECTIVENESS.
--- NOTE | 2019-04-27 21:30 | NUR ---
PT RESTING COMFORTABLY IN BED WITH EYES SHUT. PAIN MED WAS EFFECTIVE.
--- NOTE | 2019-04-27 23:04 | NUR ---
PT YELLING OUT IN PAIN. MEDICATED WITH PRN DILAUDID ORDERED. WILL CHECK EFFECTIVENESS.
--- NOTE | 2019-04-27 23:30 | NUR ---
PT RESTING IN BED COMFORTABLY WITH EYES CLOSE. NO SIGNS OF DISTRESS NOTED. PAIN MED EFFECTIVE. WILL CONTINUE TO MONITOR.
[2019-04-28] VITALS: BP 195/76
--- NOTE | 2019-04-28 | NUR ---
PTS HR BACK IN THE 120'S. NOTIFIED AND HE SAID TO GO AHEAD AND GIVE THE LOPRESSOR AGAIN ORDERED.
--- NOTE | 2019-04-28 00:14 | NUR ---
LOPRESSOR GIVEN ORDERED. WILL MONITOR HR.
[2019-04-28 00:45] VITALS: BP 158/86
--- NOTE | 2019-04-28 01:00 | NUR ---
PTS HR IN THE LOW 100s. PT RESTING COMFORTABLY WITH EYES SHUT. WILL CONTINUE TO MONITOR.
--- NOTE | 2019-04-28 02:51 | NUR ---
PT YELLING OUT IN PAIN. MEDICATED WITH PRN DILAUDID PER ORDER. WILL CHECK EFFECTIVENESS.
--- NOTE | 2019-04-28 03:17 | NUR ---
PT RESTING COMFORTABLY IN BED WITH EYES SHUT. NO S/S OF DISTRESS NOTED. PAIN MED EFFECTIVE. WILL MONITOR.
--- NOTE | 2019-04-28 03:27 | NUR ---
HR CURRENTLY 111 PER CM. PT RESTING. NO S/S DISTESS NOTED.
--- NOTE | 2019-04-28 04:30 | NUR ---
MEDICATED WITH PRN ATIVAN FOR AGITATION. WILL CHECK EFFECTIVENESS.
--- NOTE | 2019-04-28 04:53 | NUR ---
ATIVAN EFFECTIVE. PT RESTING QUIETLY SINCE MEDICATED.
--- NOTE | 2019-04-28 06:21 | NUR ---
PT YELLING OUT IN PAIN. MEDICATED WITH PRN DILAUDID ORDERED. WILL CHECK EFFECTIVENESS.
--- NOTE | 2019-04-28 06:44 | NUR ---
PT RESTING IN BED COMFORTABLY WITH EYES CLOSED. RESPIRATIONS EASY AND REGULAR. PAIN MED EFFECTIVE.
[2019-04-28 06:47] LABS: EOS # 0.1 10*3/uL (0.0-0.4); EOS % 0.9 % (1.0-4.0); HEMATOCRIT 27.7 % (37.0-47.0); HEMOGLOBIN 8.4 g/dl (12.0-16.0); LYMPH % 14.5 % (27.0-41.0); MEAN CELL VOLUME 95.2 fl (81.0-99.0); MEAN CORPUSCULAR HGB 28.9 pg (27.0-31.0); MEAN CORPUSCULAR HGB CONC 30.3 g/dl (33.0-37.0); MEAN PLATELET VOLUME 9.7 fl (9.6-12.3); MONO # 0.5 10*3/uL (0.1-1.0); MONO % 7.7 % (3.0-9.0); NEUT % 75.4 % (47.0-73.0); PLATELET COUNT AUTOMATED 237 10*3/uL (130-400); RED BLOOD COUNT 2.91 10*6/uL (4.10-5.10); RED CELL DISTRI WIDTH 14.3 % (0-14.5); WHITE BLOOD COUNT 6.6 10*3/uL (4.8-10.8)
[2019-04-28 07:22] LABS: CHLORIDE 118 mmol/L (98-107); POTASSIUM 3.4 mmol/L (3.5-5.1); SODIUM 145 mmol/L (136-145)
[2019-04-28 07:31] LABS: BUN 3 mg/dl (7-24); CREATININE 0.51 mg/dL (0.55-1.02); PHOSPHOROUS 1.8 mg/dL (2.5-4.9)
--- NOTE | 2019-04-28 08:58 | NUR ---
New Car Inspector in to see patient. She is a LTC resident at [facility] and will return there upon discharge. She is a quadriplegic and she is non-verbal. senior program planner following.
--- NOTE | 2019-04-28 09:03 | NUR ---
Updated clinicals and physical therapy faxed to [facility] for review. Patient is a longterm resident and ok to return when medically stable.
[2019-04-28 12:00] VITALS: BP 158/86
--- NOTE | 2019-04-28 14:37 | NUR ---
Message left at 's office regarding consult for non anion gap acidosis.
--- NOTE | 2019-04-28 15:01 | NUR ---
Called to verify orders and medications with . Physician to call back.
--- NOTE | 2019-04-28 15:10 | NUR ---
Dr. Fu returned call. See new orders.
--- NOTE | 2019-04-28 15:22 | NUR ---
PHYSICAL THERAPY TREATMENT TIME: 1:30 PM - 1:43 PM Patient presented to therapy in supine with head of bed elevated and bed alarm activated. Patient has difficulty communicating. Patient identified by name and on wristband. Patient performed supine to sitting at EOB with TOTAL DEPENDENT TRANSFER. Patient sat on EOB with MAX A X 1 to prevent forwards slide onto floor. Patient's hips and L LE in extension. Patient sit to stand and SPT to bed side chair with TOTAL DEPENDENT TRANSFER , with a brief period of time that the patient was MAX A X 2 SIDE-STEPPING. Patient unable to continue side-stepping into bedside chair so patient was TOTAL DEPENDENT transfer the rest of the distance into bedside chair. PATIENT SAT IN BEDSIDE CHAIR WITH CHAIR ALARM ATTACHED AFTER BEING TESTED. Patient was left with LEs elevated and in recumbant postion with call light within reach. Patient was allowed to sit up for 1.5 hours and then transferred sit to stand and SPT to EOB with TOTAL DEPENDENT TRANSFER and no cooperation with patient wt. bearing with LEs. Patient transferred to supine with TOTAL DEPENDENT TRANSFER. Patient was left in supine in bed with head of bed elevated, call light within reach and bed alarm activated. BED rails up. Patient REQUIRES 3 PEOPLE PRESENT TO TRANSFER FOR SAFETY, ONE FOR STANDBY FOR SAFETY AND TWO FOR THE ACTUAL TRANSFER. Patient was treated for a total of 15 minutes for including both transfers. JAKY CHEEK MACHINE STONECUTTER
[2019-04-28 17:40] LABS: URINE CREATININE RANDOM < 13.00 mg/dL
--- NOTE | 2019-04-28 19:30 | NUR ---
IN TO SEE PT. ASSESSMENT COMPLETE. PT YELLING OUT. PT HR IN THE 140s. INFORMED AND SAID SHE WAS ALREADY AWARE OF THIS AND ORDERED A FLUID BOLUS THAT THE PREVIOUS NURSE WAS SUPPOSED TO OF HAD GOING. FLUIDS GOING NOW PER LET THAT RUN AND MONITOR THE HR.
--- NOTE | 2019-04-28 20:24 | NUR ---
PT YELLING OUT AGITATED. MEDICATED WITH PRN ATIVAN. WILL MONITOR.
--- NOTE | 2019-04-28 20:30 | NUR ---
INFORMED IV INFILTRATED AND IV MEDS FROM PREVIOUS SHIFT NOT GIVEN. WENT OVER IN DETAIL THE MEDS THAT WERE NOT GIVEN AND THE NEXT SCHEDULED TIMES. INSTRUCTED THAT PT NEEDS THESE MEDS AND TO GIVE THESE MEDS WHEN IV ACCESSED OBTAINED.
--- NOTE | 2019-04-28 20:45 | NUR ---
INFORMED HR DOWN TO 120'S. PER SHE WAS FINE WITH THIS. WILL CONTINUE TO MONITOR.
--- NOTE | 2019-04-28 21:30 | NUR ---
PT STARTING TO VALM DOWN SOME. RESTING IN BED. ATIVAN EFFECTIVE. WILL MONITOR.
[2019-04-29] VITALS: BP 147/80
--- NOTE | 2019-04-29 00:13 | NUR ---
PT. YELLING OUT; MEDICATED WITH ATIVAN.
--- NOTE | 2019-04-29 00:30 | NUR ---
IV started right forearm with #24 protective cath after 3 attempts. Site prepped with Chloroprep. Sterile dressing applied. Patient tolerated procedure well. IV infusing at cc/hr. TANIA KEARNS
--- NOTE | 2019-04-29 03:57 | NUR ---
PATIENT MEDICATED AT THIS TIME WITH PRN DILAUDID FOR INCREASED AGITATION DUE TO PAIN. WHEN ASKED IF SHE WAS HAVING PAIN PATIENT STATED "YES".
--- NOTE | 2019-04-29 04:50 | NUR ---
PRN DILAUDID EFFECTIVE, PATIENT RESTING IN A POSITION OF COMFORT NO LONGER MOANING AND CALLING OUT. WILL CONTINUE TO MONITOR.
[2019-04-29 07:12] LABS: HEMATOCRIT 25.7 % (37.0-47.0); HEMOGLOBIN 8.5 g/dl (12.0-16.0); MEAN CORPUSCULAR HGB 29.5 pg (27.0-31.0); MEAN CORPUSCULAR HGB CONC 33.1 g/dl (33.0-37.0); MEAN PLATELET VOLUME 9.7 fl (9.6-12.3); NUCLEATED RED BLOOD CELL 0.4 % (0.0-0.0); PLATELET COUNT AUTOMATED 269 10*3/uL (130-400); RED BLOOD COUNT 2.88 10*6/uL (4.10-5.10); RED CELL DISTRI WIDTH 14.4 % (0-14.5); WHITE BLOOD COUNT 7.9 10*3/uL (4.8-10.8)
[2019-04-29 07:13] LABS: MEAN CELL VOLUME 89.2 fl (81.0-99.0)
[2019-04-29 07:29] LABS: BUN 3 mg/dl (7-24); CHLORIDE 118 mmol/L (98-107); CREATININE 0.47 mg/dL (0.55-1.02); SODIUM 142 mmol/L (136-145)
[2019-04-29 07:30] LABS: PHOSPHOROUS 1.1 mg/dL (2.5-4.9)
[2019-04-29 07:31] LABS: POTASSIUM 4.3 mmol/L (3.5-5.1)
--- NOTE | 2019-04-29 07:45 | NUR ---
PT YELLING OUT, REPOSITIONING AND OFFERING FLUID INEFFECTIVE, PRN ATIVAN GIVEN FOR ANXIETY
[2019-04-29 07:56] LABS: PLATELET SUFFICIENCY NORMAL (NORMAL); POLYCHROMASIA SLIGHT; TOTAL CELLS COUNTED 100 #CELLS; TOXIC GRANULATION MODERATE
--- NOTE | 2019-04-29 10:14 | NUR ---
ID NOTIFIED OF CONSULT
--- NOTE | 2019-04-29 10:14 | NUR ---
OSKAR MAE NOTIFIED OF DAUGHTERS REQUEST TO HAVE PATIENT TRANSFERRED TO [facility], PER DAUGHTER, THE PATIENTS DOCTORS ARE ALL THERE AND SHE WOULD FEEL FOR COMFORTABLKE WITH HER MOTHER BEING THERE,
--- NOTE | 2019-04-29 11:10 | NUR ---
DAVION VALENTIN IN PLACE UNTIL 04/30/2019
[2019-04-29 12:00] VITALS: BP 128/70
[2019-04-29] MEDS ORDERED: ZOSYN 3.373.375 GM/5 IV (13:37)
--- NOTE | 2019-04-29 15:12 | NUR ---
SPEECH PATHOLOGY Order for clinical swallowing evaluation received. Patient is from [place] and medical history is signficant for cecal polyp, s/p hemicolectomy, DM, CVA, brain aneurysm, dysphagia, HTN, UTI. Patient is currently ordered a clear liquid diet. Clinician attempted assessment this am. Patient was unsafe to attempt feeding due to alternating level of alertness, with patient yelling, then closing her eyes and not responding. Clinician returned for second attempt in the pm. Patient's daughter was present and reported that premorbidly patient was alert, followed commands, spoke clearly and consumed a diet consisting of chopped food and thin liquid. She stated that her mother was able to verbalize her wants and needs. Upon second visit, patient remained unable to participate. Her response was minimal. She did not follow commands. She attempted to speak but was unintelligible. Patient was not appropriate to attempt po feeding at this time. Daughter was educated and verbalized understanding and agreement. Patient's nurse reported that plan is for transfer to [place]. Will attempt assessment again tomorrow as appropriate. Thank you for this referral. MORELIA SARABIA MSCCC-IT INVESTMENT/PORTFOLIO MANAGER
--- NOTE | 2019-04-29 15:13 | NUR ---
PHYSICAL THERAPY TREATMENT TIME: 3:00 PM - 3:15 PM 15 MINUTES TOTAL. PATIENT PRESENTED TO THERAPY IN SUPINE IN BED WITH HEAD OF BED ELEVATED AND BED ALARM ACTIVATED. PATIENT HAS VISITOR IN ROOM WITH HER. PATIENT IS ON MULTIPLE INFUSING IVs AT THIS TIME AND HAS A CATHETER. PATIENT PERFORMED SUPINE TO SETTING AT EOB TRANSFER WITH MAX A X 2. PATIENT SIT AT EOB FOR 5 MINUTES WITH MOD A X 2. PATIENT HAS REARWARD LEAN IN SITTING. PATIENT CANNOT USE HER HANDS TO ASSIST THEY ARE IN A FLEXION SYNERGY. PATIENT IS VERY WEAK AND REQUIRES MOD A X 2 TO MAX A X 2 AT ALL TIMES IN SITTING. PATIENT SIT TO STAND TRANSFER FROM EOB WITH TOTAL DEPENDENT LIFT INTO STANDING. PATIENT STOOD FOR < 20 SECONDS AND HAD TO SIT DUE TO LE WEAKNESS. PATIENT REQUIRED MAX A X 2 TO A TOTAL DEPENDENT ASSISTANCE WHILE STANDING AND LEs BUCKLED UNDER HER. PATIENT IS VERY WEAK AND UNSAFE IN STANDING AND IN SITITNG. PATIENT TO
[2019-04-29 16:00] VITALS: BP 155/83
--- NOTE | 2019-04-29 16:20 | NUR ---
PER ANGELIA AT [facility] PT WILL REQUIRE PRECERT BEFORE THEY CAN ACCEPT HER. DAUGHTER NOTIFIED
--- NOTE | 2019-04-29 18:47 | NUR ---
PRN ATIVAN GIVEN FOR PT YELLING OUT AND AGITATION
[2019-04-29 20:00] VITALS: BP 140/54
--- NOTE | 2019-04-29 20:18 | NUR ---
MEDICATED WITH TORADOL PER STRAIGHT ORDER.
--- NOTE | 2019-04-29 20:30 | NUR ---
ATIVAN SOMEWHAT EFFECTIVE. WILL CONTINUE TO MONITOR.
--- NOTE | 2019-04-29 21:57 | NUR ---
PT. YELLING OUT OCCASIONAL; APPEARS TO BE IN PAIN. MEDICATED WITH DILAUDID PER ORDERS.
[2019-04-29 22:00] VITALS: BP 140/54
[2019-04-30] VITALS: BP 125/60
[2019-04-30 06:46] LABS: BASO % 0.3 % (0.0-1.0); EOS # 0.1 10*3/uL (0.0-0.4); EOS % 1.7 % (1.0-4.0); HEMATOCRIT 27.3 % (37.0-47.0); HEMOGLOBIN 8.9 g/dl (12.0-16.0); LYMPH % 16.3 % (27.0-41.0); MEAN CELL VOLUME 90.7 fl (81.0-99.0); MEAN CORPUSCULAR HGB 29.6 pg (27.0-31.0); MEAN CORPUSCULAR HGB CONC 32.6 g/dl (33.0-37.0); MEAN PLATELET VOLUME 9.2 fl (9.6-12.3); MONO # 0.4 10*3/uL (0.1-1.0); MONO % 6.3 % (3.0-9.0); NEUT # 4.6 10*3/uL (2.3-7.9); NEUT % 73.7 % (47.0-73.0); PLATELET COUNT AUTOMATED 293 10*3/uL (130-400); RED BLOOD COUNT 3.01 10*6/uL (4.10-5.10); RED CELL DISTRI WIDTH 14.7 % (0-14.5); WHITE BLOOD COUNT 6.3 10*3/uL (4.8-10.8)
--- NOTE | 2019-04-30 06:57 | NUR ---
SPOKE TO PERI AT [facility] PERTAINING TO HER WANTING AN UPDATE ON PT'S VITAL SIGNS. PERI STATED THAT THERE WAS NOT A BED AVAILABLE & THAT THE WAIT WAS GREATER THAN 4 HOURS.
[2019-04-30 07:29] LABS: BUN 4 mg/dl (7-24); CHLORIDE 110 mmol/L (98-107); SODIUM 142 mmol/L (136-145)
[2019-04-30 07:31] LABS: CREATININE 0.57 mg/dL (0.55-1.02); PHOSPHOROUS 1.8 mg/dL (2.5-4.9)
[2019-04-30 07:50] LABS: POTASSIUM 2.8 mmol/L (3.5-5.1)
[2019-04-30 08:00] VITALS: BP 130/62
--- NOTE | 2019-04-30 08:00 | NUR ---
PT RESTING IN BED. NO DISTRESS NOTED. WILL MONITOR
--- NOTE | 2019-04-30 11:08 | NUR ---
SPEECH PATHOLOGY Patient was noted to be sound asleep this am. Reports indicate she had been hollering in pain earlier this morning and medication was given. Assessment of swallow was not attempted at this time due to status. Will attempt again later. MORELIA SARABIA MSCCC-COLORER
--- NOTE | 2019-04-30 11:21 | NUR ---
Contacted [facility]. They stated they are accepting this patient but they are waiting for a bed to open. She stated they will call the unit and notify the RN once a bed becomes available.
[2019-04-30 12:00] VITALS: BP 152/68
--- NOTE | 2019-04-30 14:00 | NUR ---
PHYSICAL THERAPY Patient was resting supine in bed this pm upon therapist arrival and was seen 1;1 for therapy visit. Patient identified by name / on wristband and was joined by her daughter who was about to leave briefly. OT clinical laboratory assistant was present for observation only as patient presented with IV treatment and was able to speak several words periodically throughout treatment time. Patient transfered supine to sit EOB with MAX A x 2, tolerating static EOB sit x several minutes, MIN A x 1. Patient attmept to stand MAX/FOLD SKIVER x 2, however demonstrated severe extensor tone posture and was returned to EOB sit. Upon sitting down, patient was unable to maintain seated posture secondary to Poor trunk control and was starting to slide forward along EOB. Therapist immediately returned patient to supine in bed MAX A x 2 as patient remained with HOB elevated, call light, bed side rails raised and bed alarm activated. Will continue per POC as tolerated, total treatment time 13 minutes. Philip Perea, PRISON PSYCHIATRIST
--- NOTE | 2019-04-30 15:10 | NUR ---
SPEECH PATHOLOGY Assessment attempted X2 this pm. Upon both attempts patient was unavailable as she was having a medical procedure completed at the bedside. Will attempt again at a later time. MORELIA SARABIA MSCCC-SPRING FITTER HELPER
[2019-04-30 16:00] VITALS: BP 137/68
--- NOTE | 2019-04-30 16:35 | NUR ---
SAS[facility] WOUND PHOTOS TAKEN OF CHRIS
--- NOTE | 2019-04-30 18:13 | NUR ---
REPORT CALLED TO ALYCIA AT [facility]
--- NOTE | 2019-04-30 18:14 | NUR ---
Discharge instructions reviewed with patient/family. Patient receptive and verbalizes understanding. Follow-up care arranged. Written instructions given to patient/family. CATRACHITO CEDENO DTR AT BEDSIDE , AMBULANCE HERE TO GET PT
--- NOTE | 2019-05-01 07:32 | NUR ---
PHYSICAL THERAPY CO-SIGN I approve of the Physical Therapy notes written above. Geri Mckeon PT
== END 2019-04-30 18:14 | disposition short-term general hospital (02) | DRG 231 ==
LOC: SDC 07:40 → 5E 07:42 → SDC 04-23 08:00 → ICCU 04-23 10:52 → 4E 04-27 14:01
PROVIDERS: Internal Medicine; Internal Medicine Nephrology; Registered Nurse; Student in an Organized Health Care Education/Training Program; Surgery; ADMIT Family Medicine
PROC: 0DBL0ZZ Excision of Transverse Colon, Open Approach (ICD-10-PCS; principal; 2019-04-23)
PROC: 02H633Z Insertion of Infusion Device into Right Atrium, Percutaneous Approach (ICD-10-PCS; 2019-04-30)
PROC: B548ZZA Ultrasonography of Superior Vena Cava, Guidance (ICD-10-PCS; 2019-04-30)
DX: D12.0 Benign neoplasm of cecum (principal); D12.8 Benign neoplasm of rectum; I10 Essential (primary) hypertension; G93.41 Metabolic encephalopathy; E11.9 Type 2 diabetes mellitus without complications; M24.529 Contracture, unspecified elbow; I67.1 Cerebral aneurysm, nonruptured; R13.10 Dysphagia, unspecified; N39.0 Urinary tract infection, site not specified; B96.20 Unspecified Escherichia coli [E. coli] as the cause of diseases classified elsewhere; G40.909 Epilepsy, unspecified, not intractable, without status epilepticus; K56.7 Ileus, unspecified; E87.2 Acidosis; T50.3X5A Adverse effect of electrolytic, caloric and water-balance agents, initial encounter; Y92.238 Other place in hospital as the place of occurrence of the external cause; R00.0 Tachycardia, unspecified; Z79.899 Other long term (current) drug therapy; Z86.73 Personal history of transient ischemic attack (TIA), and cerebral infarction without residual deficits; Z97.8 Presence of other specified devices; Z79.4 Long term (current) use of insulin

== ENCOUNTER 2020-07-23 16:42 | Observation (INO) | payer MEDICAID ==
[~2020-07-23] VITALS: Ht 152 cm; Wt 57.8 kg
[~2020-07-23 16:42] MED LIST changes: +ZOSYN 3.373.375 GM/5 IV
[2020-07-23 16:48] VITALS: BP 159/66
[2020-07-23 17:59] LABS: BASO % 0.2 % (0.0-1.0); EOS # 0.1 10*3/uL (0.0-0.4); EOS % 0.6 % (1.0-4.0); HEMATOCRIT 38.8 % (37.0-47.0); LYMPH # 1.6 10*3/uL (1.3-4.4); LYMPH % 18.3 % (27.0-41.0); MEAN CELL VOLUME 90.9 fl (81.0-99.0); MEAN CORPUSCULAR HGB 29.5 pg (27.0-31.0); MEAN CORPUSCULAR HGB CONC 32.5 g/dl (33.0-37.0); MEAN PLATELET VOLUME 9.5 fl (9.6-12.3); MONO # 0.7 10*3/uL (0.1-1.0); MONO % 8.5 % (3.0-9.0); NEUT # 6.3 10*3/uL (2.3-7.9); NEUT % 71.9 % (47.0-73.0); PLATELET COUNT AUTOMATED 189 10*3/uL (130-400); RED BLOOD COUNT 4.27 10*6/uL (4.10-5.10); RED CELL DISTRI WIDTH 13.2 % (0-14.5); WHITE BLOOD COUNT 8.7 10*3/uL (4.8-10.8)
[2020-07-23 18:10] LABS: ACT PARTIAL THROMBO TIME 26.5 SECONDS (20.0-32.1)
[2020-07-23 18:15] LABS: ALKALINE PHOSPHATASE 220 U/L (45-117); BUN 15 mg/dl (7-24); CHLORIDE 107 mmol/L (98-107); CPK 70 U/L (26-192); CREATININE 0.53 mg/dL (0.55-1.02); POTASSIUM 3.8 mmol/L (3.5-5.1); SGOT/AST 60 IU/L (3-35); SGPT/ALT 82 U/L (12-78); SODIUM 135 mmol/L (136-145); TOTAL PROTEIN 7.9 gm/dL (6.4-8.2)
[2020-07-23 18:16] LABS: TROPONIN I < 0.015 ng/ml (<0.045)
[2020-07-23 20:01] VITALS: BP 144/61
[2020-07-23 20:01] LABS: BILIRUBIN Negative (Negative); BLOOD 3+ (Negative); CLARITY Clear (Clear); COLOR Yellow (Yellow); GLUCOSE Negative (Negative); KETONE Negative (Negative); LEUKO ESTERASE 3+ (Negative); NITRITE Positive (Negative); UROBILINOGEN 0.2 E.U./dl (0.0-1.0)
[2020-07-23 20:13] LABS: BACTERIA 4+; WBC 51-100 wbc/hpf (0-5)
[2020-07-23 20:50] VITALS: BP 160/65
[2020-07-23 21:05] VITALS: BP 150/73; BP 154/66
[2020-07-23] MEDS ORDERED: AMARYL4 MG PO (21:42)
[2020-07-23] MEDS ORDERED: REMERON15 M2 PO (21:44)
[2020-07-23] MEDS ORDERED: SEMGLEE100 UNIT/1 SQ (21:45)
[2020-07-23] MEDS ORDERED: BUSPIRONE15 MG PO (21:46)
[2020-07-24] VITALS: BP 147/65
[2020-07-24 08:00] VITALS: BP 104/53
[2020-07-24 12:00] VITALS: BP 134/59
[2020-07-24] MEDS ORDERED: MULTI-VITAMIN1 EACH PO (15:08)
[2020-07-24] MEDS ORDERED: OLOPATADINE HCL5 ML IO (15:09)
[2020-07-24 16:00] VITALS: BP 135/64
[2020-07-24 20:00] VITALS: BP 138/61
[2020-07-25] VITALS: BP 135/49
[2020-07-25 08:00] VITALS: BP 123/48
[2020-07-25 12:00] VITALS: BP 142/57
[2020-07-25] MEDS ORDERED: LOPRESSOR25 MG PO (13:14)
[2020-07-25] MEDS ORDERED: AUGMENTIN 875-875 MG PO (13:14)
== END 2020-07-25 19:56 ==
LOC: ED 16:42 → 5E 19:18 → EDHOLD 19:18 → 5E 20:12
PROVIDERS: Emergency Medicine; ADMIT Internal Medicine; ATTEND Internal Medicine
DX: N39.0 Urinary tract infection, site not specified (principal); B96.89 Other specified bacterial agents as the cause of diseases classified elsewhere; Z20.822 Contact with and (suspected) exposure to COVID-19; I10 Essential (primary) hypertension; G40.409 Other generalized epilepsy and epileptic syndromes, not intractable, without status epilepticus; E11.9 Type 2 diabetes mellitus without complications; F41.1 Generalized anxiety disorder; Z79.4 Long term (current) use of insulin; Z86.73 Personal history of transient ischemic attack (TIA), and cerebral infarction without residual deficits

== ENCOUNTER 2020-08-14 11:14 | Emergency (ER) | payer MEDICAID ==
[~2020-08-14] VITALS: Wt 53.1 kg
[~2020-08-14 11:14] MED LIST changes: +AMARYL4 MG PO; +AUGMENTIN 875-875 MG PO; +BUSPIRONE15 MG PO; +MULTI-VITAMIN1 EACH PO; +OLOPATADINE HCL5 ML IO; +SEMGLEE100 UNIT/1 SQ
[2020-08-14 11:21] VITALS: BP 155/65
[2020-08-14 13:26] LABS: BASO % 0.5 % (0.0-1.0); EOS # 0.2 10*3/uL (0.0-0.4); EOS % 2.6 % (1.0-4.0); LYMPH # 1.6 10*3/uL (1.3-4.4); LYMPH % 24.4 % (27.0-41.0); MEAN CELL VOLUME 92.9 fl (81.0-99.0); MEAN CORPUSCULAR HGB 29.6 pg (27.0-31.0); MEAN CORPUSCULAR HGB CONC 31.8 g/dl (33.0-37.0); MEAN PLATELET VOLUME 9.2 fl (9.6-12.3); MONO # 0.6 10*3/uL (0.1-1.0); NEUT # 4.1 10*3/uL (2.3-7.9); NEUT % 62.9 % (47.0-73.0); PLATELET COUNT AUTOMATED 268 10*3/uL (130-400); RED BLOOD COUNT 4.09 10*6/uL (4.10-5.10); WHITE BLOOD COUNT 6.6 10*3/uL (4.8-10.8)
[2020-08-14 13:40] LABS: ALBUMIN 3.1 gm/dl (3.1-4.5); ALKALINE PHOSPHATASE 202 U/L (45-117); BUN 11 mg/dl (7-24); CHLORIDE 112 mmol/L (98-107); CREATININE 0.45 mg/dL (0.55-1.02); POTASSIUM 4.3 mmol/L (3.5-5.1); SGOT/AST 52 IU/L (3-35); SGPT/ALT 52 U/L (12-78); SODIUM 137 mmol/L (136-145); TOTAL PROTEIN 7.5 gm/dL (6.4-8.2)
[2020-08-14 14:05] LABS: BILIRUBIN Negative (Negative); BLOOD 1+ (Negative); CLARITY Cloudy (Clear); COLOR Yellow (Yellow); GLUCOSE Negative (Negative); KETONE Negative (Negative); LEUKO ESTERASE 3+ (Negative); NITRITE Positive (Negative); PH 5.5 (4.5-8.0); UROBILINOGEN 0.2 E.U./dl (0.0-1.0)
[2020-08-14 14:32] LABS: BACTERIA 3+; WBC 51-100 wbc/hpf (0-5)
== END 2020-08-14 15:13 ==
LOC: ED 11:14
PROVIDERS: Nurse Practitioner
DX: S82.002A Unspecified fracture of left patella, initial encounter for closed fracture (principal); M01.X62 Direct infection of left knee in infectious and parasitic diseases classified elsewhere; N39.0 Urinary tract infection, site not specified; Z86.73 Personal history of transient ischemic attack (TIA), and cerebral infarction without residual deficits; Z79.899 Other long term (current) drug therapy; Z79.2 Long term (current) use of antibiotics; Z79.4 Long term (current) use of insulin; I10 Essential (primary) hypertension; Z98.890 Other specified postprocedural states; X58.XXXA Exposure to other specified factors, initial encounter; Y93.89 Activity, other specified; Y92.89 Other specified places as the place of occurrence of the external cause; Y99.8 Other external cause status

== ENCOUNTER → 2020-08-31 | Outpatient (CLI) | payer MEDICAID | END | disposition home or self-care (01) | LOC: RAD 13:30 | PROVIDERS: ATTEND Internal Medicine | DX: M81.0 Age-related osteoporosis without current pathological fracture (principal); M85.89 Other specified disorders of bone density and structure, multiple sites ==

== ENCOUNTER → 2020-10-14 | Outpatient (CLI) | payer SELFPAY | END | disposition home or self-care (01) | LOC: RAD 02:20 | PROVIDERS: ATTEND Orthopaedic Surgery | DX: S80.02XA Contusion of left knee, initial encounter (principal); X58.XXXA Exposure to other specified factors, initial encounter; Y93.89 Activity, other specified; Y92.89 Other specified places as the place of occurrence of the external cause; Y99.8 Other external cause status ==